=== PATIENT | female | born 1955 | race Caucasian/White ===

== ENCOUNTER → 2017-10-23 | Outpatient (CLI) | payer BC | END | disposition home or self-care (01) | LOC: CDC 11:54 | DX: Z01.810 Encounter for preprocedural cardiovascular examination (principal); E04.1 Nontoxic single thyroid nodule | CPT/HCPCS: 93000 ==

== ENCOUNTER 2017-11-07 05:33 | Day surgery (SDC) | payer BC ==
[~2017-11-07] VITALS: Ht 160 cm; Wt 79.8 kg
[~2017-11-07 05:33] MED LIST: CHANTIX0.5 MG PO; EVISTA60 MG PO; LEXAPRO10 MG PO; LO-DOSE ASPIRIN81 M1 PO; PRILOSEC20 MG PO; ZOCOR40 MG PO
[2017-11-07 06:02] VITALS: BP 137/83
[2017-11-07 15:15] VITALS: BP 141/77
[2017-11-07 20:07] VITALS: BP 134/76
[2017-11-07 23:42] VITALS: BP 138/77
[2017-11-08 03:30] VITALS: BP 141/87
[2017-11-08 05:49] LABS: BASOPHIL (%) 0.3 % (0-1); EOSINOPHIL (%) 0 % (0-5); HEMATOCRIT 37.9 % (36.0-46.0); HEMOGLOBIN 12.7 G/DL (11.9-15.5); IMMATURE GRANULOCYTE (%) 0.3 % (0.0-0.7); LYMPHOCYTE (%) 15.4 % (15-42); LYMPHOCYTE COUNT 1.8 K/uL (1.0-2.8); MCH 29.6 PG (29.0-34.0); MCHC 33.5 G/DL (30.0-36.0); MCV 88.3 FL (83-99); MONOCYTE (%) 8.8 % (3-12); NEUTROPHIL (%) 75.2 % (45-76); NEUTROPHIL COUNT 8.7 K/uL (1.8-6.4); PLATELET COUNT 209 K/uL (156-360); RED BLOOD COUNT 4.29 M/uL (3.80-5.20); WHITE BLOOD COUNT 11.5 K/uL (4.1-10.2)
[2017-11-08 06:32] LABS: CHLORIDE 102 MEQ/L (99-109); CREATININE 0.7 MG/DL (0.6-1.3); GFR ESTIMATE (CALCULATED) > 59 mL/min/; GLUCOSE 122 mg/dL (70-99); SODIUM 142 MEQ/L (136-147); UREA NITROGEN (BUN) 12 mg/dL (9-23)
[2017-11-08 08:05] VITALS: BP 139/78
[2017-11-08] MEDS ORDERED: HYDROCODON-ACE1 EAC7 PO (10:41)
[2017-11-08] MEDS ORDERED: SYNTHROID100 MCG PO (10:41)
== END 2017-11-08 11:34 | disposition home or self-care (01) ==
LOC: SDC 05:33 → 2SOUTH 10:46 → 2EAST 10:46 → ENRESERV 10:49 → SDC 11:14 → ENRESERV 13:51 → SDC 13:57 → 2EAST 14:47
PROVIDERS: Student in an Organized Health Care Education/Training Program
PROC: 0GBJ0ZZ Excision of Thyroid Gland Isthmus, Open Approach (ICD-10-PCS; principal; 2017-11-07)
PROC: 0GTK0ZZ Resection of Thyroid Gland, Open Approach (ICD-10-PCS; principal; 2017-11-07)
DX: E04.2 Nontoxic multinodular goiter (principal); E66.9 Obesity, unspecified; Z68.31 Body mass index [BMI] 31.0-31.9, adult; D64.9 Anemia, unspecified; F41.9 Anxiety disorder, unspecified; E78.5 Hyperlipidemia, unspecified; Z79.82 Long term (current) use of aspirin; F17.200 Nicotine dependence, unspecified, uncomplicated
CPT/HCPCS: 80048; 85025; 88305; 88307; 88331; G0378; J0131; J0330; J0690; J1100; J1170; J1200; J2250; J2405; J2765; J3010; J7120; S0020

== ENCOUNTER 2017-11-10 13:53 | Observation (INO) | payer BC ==
[~2017-11-10] VITALS: Ht 160 cm; Wt 71.5 kg
[~2017-11-10 13:53] MED LIST changes: +HYDROCODON-ACE1 EAC7 PO; +SYNTHROID100 MCG PO
[2017-11-10 14:20] VITALS: BP 119/71
[2017-11-10 16:30] VITALS: BP 134/75
[2017-11-10 19:29] VITALS: BP 164/90
[2017-11-10 23:54] VITALS: BP 135/92
[2017-11-11 04:42] VITALS: BP 108/61
[2017-11-11 07:39] LABS: INTACT PARATHYROID HORMONE < 6 pg/mL (10-69)
[2017-11-11 08:23] VITALS: BP 129/84
[2017-11-11 11:44] VITALS: BP 135/92
[2017-11-11 16:00] VITALS: BP 143/73
[2017-11-11 20:06] VITALS: BP 139/89
[2017-11-11 22:57] VITALS: BP 133/77
[2017-11-12 04:22] VITALS: BP 139/75
[2017-11-12 08:11] VITALS: BP 154/77
[2017-11-12 16:23] VITALS: BP 158/67
[2017-11-12 19:47] LABS: INTACT PARATHYROID HORMONE 6 pg/mL (10-69)
[2017-11-12 23:07] VITALS: BP 164/91
[2017-11-12 23:14] VITALS: BP 146/88
[2017-11-13 08:09] VITALS: BP 129/92
[2017-11-13 12:22] LABS: INTACT PARATHYROID HORMONE < 6 pg/mL (10-69)
== END 2017-11-13 13:22 | disposition home or self-care (01) ==
LOC: 2SOUTH 13:53 → 3EAST 13:53 → ENRESERV 13:58 → 3EAST 14:12
PROVIDERS: Physician Assistant; Student in an Organized Health Care Education/Training Program
DX: E83.51 Hypocalcemia (principal); E89.0 Postprocedural hypothyroidism; Z79.82 Long term (current) use of aspirin; Z88.5 Allergy status to narcotic agent
CPT/HCPCS: 82310; 83970; G0378; J0610; J7050; J7120

== ENCOUNTER 2017-11-15 13:58 | Emergency (ER) | payer BC ==
[~2017-11-15] VITALS: Ht 160 cm; Wt 82.4 kg
[2017-11-15 14:31] LABS: HEMATOCRIT 38.2 % (36.0-46.0); HEMOGLOBIN 13.1 G/DL (11.9-15.5); MCH 30.1 PG (29.0-34.0); MCHC 34.3 G/DL (30.0-36.0); MCV 87.8 FL (83-99); PLATELET COUNT 243 K/uL (156-360); RBC DIS.WIDTH-CV 11.6 % (11.8-14.6); RBC DIS.WIDTH-SD 37.5 % (39-53); RED BLOOD COUNT 4.35 M/uL (3.80-5.20); WHITE BLOOD COUNT 5.7 K/uL (4.1-10.2)
[2017-11-15 14:39] LABS: CHLORIDE 105 mEq/L (99-109); POTASSIUM 4.2 mEq/L (3.7-5.4); SODIUM 140 mEq/L (136-147)
[2017-11-15 14:41] LABS: GLUCOSE 98 mg/dL (70-99)
[2017-11-15 14:45] LABS: CREATININE 0.8 mg/dL (0.6-1.3); GFR ESTIMATE (CALCULATED) > 59 mL/min/
[2017-11-15 14:46] LABS: UREA NITROGEN (BUN) 18 mg/dL (9-23)
[2017-11-15 15:15] LABS: MAGNESIUM 2.2 mg/dL (1.3-2.7)
[2017-11-15 16:56] VITALS: BP 126/75
== END 2017-11-15 16:57 | disposition home or self-care (01) ==
LOC: EME 13:58
PROVIDERS: Nurse Practitioner Family
DX: E83.51 Hypocalcemia (principal); R20.2 Paresthesia of skin; Z98.890 Other specified postprocedural states; M19.90 Unspecified osteoarthritis, unspecified site; Z87.891 Personal history of nicotine dependence; Z79.82 Long term (current) use of aspirin
CPT/HCPCS: 80048; 82040; 82330; 83735; 85027; J0610; J7050